=== PATIENT | female | born 1990 | race Two or more races ===

== ENCOUNTER 2025-07-13 10:28 | Emergency (ER) | payer OTHER ==
[~2025-07-13] VITALS: Ht 160 cm; Wt 61.2 kg
[2025-07-13] MEDS ORDERED: ORPHENADRINE CITRATE 30 MG/ML AMPUL IM ONE (11:45)
[2025-07-13] MEDS ORDERED: KETOROLAC TROMETHAMINE 30 MG VIAL IV ONE (11:45)
[2025-07-13] MEDS ORDERED: 0.9 % SODIUM CHLORIDE 500 ML IV ONE (11:45)
[2025-07-13] MEDS ORDERED: KETOROLAC TROMETHAMINE 30 MG VIAL ONE (12:01)
[2025-07-13] MEDS ORDERED: ORPHENADRINE CITRATE 30 MG/ML AMPUL ONE (12:01)
[2025-07-13 12:43] LABS: BASO % 0.3 % (0.1-1.2); EOS # 0.19 (0.04-0.54); EOS % 4.8 % (0.7-7.0); LYMPH # 1.72 (1.18-3.74); LYMPH % 43.5 % (19.3-53.1); MEAN PLATELET VOLUME 10.50 fl (9.4-12.4); MONO # 0.43 (0.24-0.82); MONO % 10.9 % (4.7-12.5); NEUT # 1.59 (1.56-6.13); NEUT % 40.2 % (34.0-71.1); RED CELL DISTRIBUTION WIDTH 11.9 % (11.6-14.4)
[2025-07-13 13:16] LABS: ALT/SGPT 26.0 U/L (12-78); AST/SGOT 23.0 U/L (15-37); BILIRUBIN TOTAL 0.47 mg/dL (0.3-1.2); BUN CREA RATIO 12.0 (7.0-25.0); CREATININE SERUM 0.65 mg/dL (0.55-1.02); GFR 105.63; GLOBULINA 4.6 G/DL (2.4-3.5); GLUCOSE FASTING 80.0 mg/dL (65-100); OSMOLALITY SERUM 277.0 MOSM/KG (275-295)
[2025-07-13] MEDS ORDERED: NAPROXEN500 MG PO (13:58)
[2025-07-14] MEDS ORDERED: CARBAMAZEPINE200 M3 PO (18:14)
== END 2025-07-13 15:11 | disposition home or self-care (01) ==
LOC: ER 10:28
PROVIDERS: Preventive Medicine Public Health & General Preventive Medicine
DX: R51.9 Headache, unspecified (principal)

== ENCOUNTER 2025-07-14 16:48 | Emergency (ER) | payer OTHER ==
[~2025-07-14] VITALS: Ht 162.6 cm; Wt 63.5 kg
[~2025-07-14 16:48] MED LIST: NAPROXEN500 MG PO
[2025-07-14] MEDS ORDERED: 0.9 % SODIUM CHLORIDE 1,000 ML IV ONE (17:30)
[2025-07-14] MEDS ORDERED: SUMATRIPTAN SUCCINATE 6 MG/0.5 ML VIAL SUBCUTANEO ONE ×2 (17:30→17:52)
[2025-07-14] MEDS ORDERED: CARBAMAZEPINE200 M3 PO (18:14)
== END 2025-07-14 18:27 | disposition home or self-care (01) ==
LOC: ER 16:52
DX: G43.909 Migraine, unspecified, not intractable, without status migrainosus (principal); Q87.19 Other congenital malformation syndromes predominantly associated with short stature; D69.3 Immune thrombocytopenic purpura

== ENCOUNTER 2025-07-15 10:49 | Outpatient (CLI) | payer OTHER ==
[~2025-07-15 10:49] MED LIST changes: +CARBAMAZEPINE200 M3 PO
== END 2025-07-15 10:51 | disposition home or self-care (01) ==
LOC: MAMO-SONO
PROVIDERS: ATTEND Obstetrics & Gynecology
DX: N64.4 Mastodynia (principal); N64.51 Induration of breast; R92.0 Mammographic microcalcification found on diagnostic imaging of breast; Z12.31 Encounter for screening mammogram for malignant neoplasm of breast; N63.0 Unspecified lump in unspecified breast